=== PATIENT | male | born 1965 | race Caucasian/White ===

== ENCOUNTER 2019-04-02 10:48 | Emergency (ER) | payer MEDICARE ==
[~2019-04-02] VITALS: Ht 170.2 cm; Wt 97.7 kg
[2019-04-02 11:13] VITALS: Ht 170.2 cm; Wt 97.7 kg
[2019-04-02] MEDS ORDERED: METFORMIN HCL500 M1 PO (11:15)
[2019-04-02] MEDS ORDERED: ULTRAM50 MG PO ×2 (11:15→16:35)
[2019-04-02] MEDS ORDERED: TORADOL10 MG PO (11:16)
[2019-04-02] MEDS ORDERED: SEROQUEL200 MG PO (11:16)
[2019-04-02] MEDS ORDERED: CYCLOBENZAPRINE10 MG PO (11:17)
[2019-04-02] MEDS ORDERED: NORVASC5 MG PO (11:17)
[2019-04-02 11:40] LABS: BASOPHILS 0.2 % (0-2); EOSINOPHILS 2.3 % (0-7); HEMATOCRIT 35.9 % (42.0-54.0); HEMOGLOBIN 12.7 g/dL (13.5-17.5); IMMATURE GRANULOCYTES 0.2 % (0-5); LYMPHOCYTES 16.2 % (15-50); MCH 31.4 pg (26.0-34.0); MCHC 35.4 g/dL (31.0-37.0); MCV 88.9 fL (80.0-100.0); MEAN PLATELET VOLUME 8.8 fL (7.4-10.4); MONOCYTES 5.3 % (2-11); NEUTROPHILS 75.8 % (40-80); PLATELET COUNT 238 10x3/uL (130-400); RBC 4.04 10x6/uL (4.20-6.10); RDW 13.2 % (11.5-14.5); WBC 9.2 10x3/uL (4.8-10.8)
[2019-04-02 11:58] LABS: ALBUMIN 3.8 g/dL (3.4-5.0); ANION GAP 10.2 mmol/L (8-16); BILIRUBIN - TOTAL 0.51 mg/dL (0.2-1.3); CALCIUM 8.5 mg/dL (8.5-10.1); CARBON DIOXIDE 26.5 mmol/L (21.0-32.0); CREATININE - SERUM 1.2 mg/dL (0.6-1.3); POTASSIUM - SERUM 3.7 mmol/L (3.5-5.1); PROTEIN - SERUM 7.8 g/dL (6.4-8.2)
[2019-04-02] MEDS ORDERED: DIPROLENE 0.05%50 GM TOPICAL (16:13)
[2019-04-02] MEDS ORDERED: PREDNISONE20 MG PO (16:33)
[2019-04-02 17:47] VITALS: BP 154/94
== END 2019-04-02 17:34 | disposition home or self-care (01) ==
LOC: D.ER 10:48
PROVIDERS: Family Medicine
DX: L40.0 Psoriasis vulgaris (principal); E11.9 Type 2 diabetes mellitus without complications; I10 Essential (primary) hypertension